=== PATIENT | male | born 1965 | race Caucasian/White ===

== ENCOUNTER 2018-06-17 11:21 | Inpatient (IN) | payer OTHER ==
--- NOTE | 2018-06-17 13:39 | HP ---
CIWA Score - CIWA Score Nausea/Vomitin Muscle Tremors: 3 Anxiety: 3 Agitation: 3 Paroxysmal Sweats: 1-Minimal Palms Moist Orientation: 0-Oriented Tacttile Disturbances: 1-Very Mild Itch/Numbness Auditory Disturbances: 1-Very Mild Visual Disturbances: 0-None Headache: 2-Mild CIWA-Ar Total Score: 17 Admission ROS BHS - HPI Chief Complaint: i need help to stop drinking alcohol,cocaine Allergies/Adverse Reactions: Allergies Allergy/AdvReac Type Severity Reaction Status Date / Time No Known Allergies Allergy Verified 06/17/18 12:05 History of Present Illness: this 52 yars old male with alcohol and cocaine dependence,seeking detox, withdrawal symptom,last detox 02/05/18 to 02/09/18 syncope alcohol related hepatitis c follow up with primary care provider mmtp 90 mgs/day,last medicated 06/16/18 weight loss no significant period of sobriety anxiety,depression,insomnia Exam Limitations: No Limitations - Ebola screening Have you traveled outside of the country in the last 21 days: No Have you had contact with anyone from an Ebola affected area: No Have you been sick,other than usual withdrawal symptoms: No Do you have a fever: No - Review of Systems Constitutional: Chills, Loss of Appetite, Night Sweats, Changes in sleep, Unintentional Wgt. Loss EENT: reports: Nose Congestion Respiratory: reports: No Symptoms reported Cardiac: reports: No Symptoms Reported GI: reports: Diarrhea, Nausea, Vomiting, Abdominal cramping : reports: No Symptoms Reported Musculoskeletal: reports: Back Pain, Muscle Pain Integumentary: reports: Dryness Neuro: reports: Headache, Tremors Endocrine: reports: No Symptoms Reported Hematology: reports: No Symptoms Reported Psychiatric: reports: No Sypmtoms Reported, Judgement Intact, Mood/Affect Appropiate, Anxious, Depressed, other (insomnia) Other Systems: Reviewed and Negative Patient History - Patient Medical History Hx Anemia: No Hx Asthma: No Hx Chronic Obstructive Pulmonary Disease (COPD): No Hx Cancer: No Hx Cardiac Disorders: No Hx Congestive Heart Failure: No Hx Hypertension: No Hx Hypercholesterolemia: No Hx Pacemaker: No Hx Seizures: No Hx Dementia: No Hx Diabetes: No Hx Gastrointestinal Disorders: No Hx Liver Disease: No Hx Genitourinary Disorders: No Hx Sexually Transmitted Disorders: No Hx Renal Disease (ESRD): No Hx Thyroid Disease: No Hx Human Immunodeficiency Virus (HIV): No (last ) Hx Hepatitis C: Yes (not treated o05/02) Hx Depression: Yes (anxiety) Hx Suicide Attempt: No Hx Bipolar Disorder: No Hx Schizophrenia: No Other Medical History: insomnia,no sucidal,no homicidal - Patient Surgical History Past Surgical History: Yes Hx Neurologic Surgery: No Hx Cataract Extraction: No Hx Cardiac Surgery: No Hx Lung Surgery: No Hx Breast Surgery: No Hx Breast Biopsy: No Hx Abdominal Surgery: No Hx Appendectomy: No Hx Cholecystectomy: No Hx Genitourinary Surgery: Yes (? testicular torsion age 16 ) Hx Section: No Hx Orthopedic Surgery: No Anesthesia Reaction: No - PPD History Previous Implant?: Yes Documented Results: Negative w/proof Implanted On Prior [facility] Admission?: Yes Date: 02/07/18 Results: 0 mm PPD to be Administered?: No - Smoking Cessation Smoking history: Current every day smoker Have you smoked in the past 12 months: Yes Aproximately how many cigarettes per day: 20 Hx Chewing Tobacco Use: No Initiated information on smoking cessation: Yes 'Breaking Loose' booklet given: 06/17/18 - Substance & Tx. History Hx Alcohol Use: Yes Hx Substance Use: Yes Substance Use Type: Alcohol, Cocaine, Heroin Hx Substance Use Treatment: Yes ([facility] 02/05/18 to 02/09/18) - Substances Abused Cocaine Route: Injection Frequency: 3-6 times per week Amount used: $100 Age of first use: 16 Date of Last Use: 06/15/18 Heroin Route: Injection Frequency: 1-2 times per week Amount used: 2-3 bags Age of first use: 16 Date of Last Use: 06/15/18 Alcohol-rum/vodka/beer Route: Oral Frequency: Daily Amount used: 3 pts./2-6 pks. Age of first use: 14 Date of Last Use: 06/16/18 Family Disease History - Family Disease History Family Disease History: Other: Father (no contact), Mother (living, healthy), Sister (eight - healthy) Admission Physical Exam BHS - Vital Signs Vital Signs: Vital Signs - 24 hr 06/17/18 11:37 Temperature 98.4 F Pulse Rate 82 Respiratory 20 Rate Blood Pressure 137/91 - Physical General Appearance: Yes: Moderate Distress, Tremorous, Irritable, Sweating, Anxious HEENTM: Yes: Normal ENT Inspection, ANA, Pharynx Normal, Other (loss lower denture) Respiratory: Yes: Lungs Clear, Normal Breath Sounds, No Respiratory Distress Neck: Yes: Within Normal Limits, Supple, Trachea in good position Breast: Yes: Within Normal Limits Cardiology: Yes: Within Normal Limits, Regular Rhythm, Regular Rate, S1, S2 Abdominal: Yes: Within Normal Limits, Normal Bowel Sounds, Non Tender, Flat Genitourinary: Yes: Within Normal Limits Back: Yes: Within Normal Limits Musculoskeletal: Yes: Back pain, Muscle Pain Extremities: Yes: Tremors Neurological: Yes: undercollar maker II-XII NML intact, Fully Oriented, Alert, Motor Strength 5/5 Integumentary: Yes: Dry Lymphatic: Yes: Within Normal Limits - Diagnostic (1) Alcohol dependence with uncomplicated withdrawal Current Visit: No Status: Acute (2) Benzodiazepine abuse, episodic Current Visit: No Status: Acute (3) Cocaine dependence Current Visit: No Status: Acute Qualifiers: Substance use status: uncomplicated Qualified Code(s): F14.20 - Cocaine dependence, uncomplicated (4) Dehydration Current Visit: No Status: Acute (5) Insomnia Current Visit: No Status: Acute (6) Nicotine dependence Current Visit: No Status: Acute Qualifiers: Nicotine product type: cigarettes Substance use status: in withdrawal Qualified Code(s): F17.213 - Nicotine dependence, cigarettes, with withdrawal (7) Methadone maintenance therapy patient Current Visit: No Status: Chronic Cleared for Admission [facility] - Detox or Rehab [facility] Level of Care: Medically Managed Detox Regimen/Protocol: Librium [facility] Breath Alcohol Content Breath Alcohol Content: 0 Urine Drug Screen - Results Drug Screen Negative: No Urine Drug Screen Results: BRUCE-Cocaine, OPI-Opiates, MTD-Methadone
[2018-06-17] MEDS ORDERED: LOPERAMIDE HCL 2 MG CAPSULE PO PRN (13:47)
[2018-06-17] MEDS ORDERED: IBUPROFEN 400 MG TABLET (FP) PO PRN (13:47)
[2018-06-17] MEDS ORDERED: guaiFENesin/D-METHORPHAN HB 10 ML UNIT-DOSE CUPS PO PRN (13:47)
[2018-06-17] MEDS ORDERED: MAGNESIUM CITRATE 300 ML BOTTLE PO PRN (13:47)
[2018-06-17] MEDS ORDERED: P-EPHED 60MG/TRIPROLIDI 2.5MG TABLET PO PRN (13:47)
[2018-06-17] MEDS ORDERED: ACETAMINOPHEN 325 MG TABLET (FP) PO PRN (13:47)
[2018-06-17] MEDS ORDERED: MAGNESIUM HYDROX 2400MG/30ML ORAL SUSPENSION 30 ML CUP PO PRN (13:47)
[2018-06-17] MEDS ORDERED: MENTHOL/PHENOL 1 EACH UD MM PRN (13:47)
[2018-06-17] MEDS ORDERED: MAG HYDROX/AL HYDROX/SIMETH 30 ML UNIT-DOSE CUP PO PRN (13:47)
[2018-06-17] MEDS ORDERED: hydrOXYzine PAMOATE 50 MG CAPSULE (FP) PO PRN (13:47)
[2018-06-17] MEDS ORDERED: METHADONE HCL 10 MG TABLET PO SCH (14:00)
[2018-06-17] MEDS ORDERED: METHADONE HCL 40 MG DISPERSABLE TABLET ONE (15:11)
[2018-06-17] MEDS ORDERED: METHADONE HCL 10 MG TABLET ONE (15:11)
[2018-06-17] MEDS: NICOTINE 21 MG/24 HOURS TOPICAL PATCH TD SCH (15:13)
[2018-06-17] MEDS: METHADONE 80 MG, METHADONE 10 MG PO SCH (15:13)
[2018-06-17] MEDS: chlordiazePOXIDE HCL 25 MG CAPSULE PO PRN (15:20)
[2018-06-17] MEDS: chlordiazePOXIDE HCL 25 MG CAPSULE PO SCH ×2 (17:33→22:10)
[2018-06-17] MEDS ORDERED: MELATONIN 5 MG TABLETS PO PRN (22:00)
[2018-06-17] MEDS: THIAMINE HCL 100 MG TABLET (FP) PO SCH (22:10)
[2018-06-18] MEDS ORDERED: METHADONE HCL 40 MG DISPERSABLE TABLET ONE (04:39)
[2018-06-18] MEDS ORDERED: METHADONE HCL 10 MG TABLET ONE (04:39)
[2018-06-18] MEDS: chlordiazePOXIDE HCL 25 MG CAPSULE PO SCH ×4 (06:36→22:31)
[2018-06-18] MEDS: METHADONE 80 MG, METHADONE 10 MG PO SCH (06:36)
--- NOTE | 2018-06-18 09:04 | EKG ---
Test Reason : Blood Pressure : / mmHG Vent. Rate : 069 BPM Atrial Rate : 069 BPM P-R Int : 186 ms QRS Dur : 086 ms QT Int : 424 ms P-R-T Axes : 082 084 071 degrees QTc Int : 454 ms NORMAL SINUS RHYTHM POSSIBLE LEFT ATRIAL ENLARGEMENT LEFT VENTRICULAR HYPERTROPHY ABNORMAL ECG WHEN COMPARED WITH ECG OF 05-FEB-2018 15:01, NO SIGNIFICANT CHANGE WAS FOUND Confirmed by NADYA GARCIA, MUNA ([id number]) on 06/18/2018 9:03:50 AM Referred By: Confirmed By:MUNA COVINGTON MD
[2018-06-18 10:27] LABS: URINE APPEARANCE TURBID; URINE BILIRUBIN NEGATIVE (<2.0 mg/dL); URINE COLOR YELLOW; URINE GLUCOSE (UA) NEGATIVE (NEGATIVE); URINE KETONE NEGATIVE (NEGATIVE); URINE LEUK ESTERASE NEGATIVE (NEGATIVE); URINE NITRITE NEGATIVE (NEGATIVE); URINE UROBILINOGEN 4.0 E.U/dl mg/dL (0.2-1.0)
[2018-06-18 10:28] LABS: URINE PROTEIN 1+ (NEGATIVE)
[2018-06-18] MEDS: CARBAMIDE PEROXIDE 6.5% OTIC 15 ML BOTTLE AD SCH ×2 (10:29→22:31)
[2018-06-18] MEDS: PRENATAL VITAMINS W/ FOLIC ACID TABLET (FP) PO SCH (10:29)
[2018-06-18] MEDS: NICOTINE 21 MG/24 HOURS TOPICAL PATCH TD SCH (10:30)
[2018-06-18 10:35] LABS: URINE BACTERIA MODERATE /hpf (NONE SEEN); URINE MUCUS FEW
[2018-06-18 10:41] LABS: HEMATOCRIT 43.9 % (35.4-49); HEMOGLOBIN 14.6 GM/dL (11.7-16.9); MCH 28.9 pg (25.7-33.7); MCHC 33.4 g/dl (32.0-35.9); MEAN CELL VOLUME 86.6 fl (80-96); MEAN PLT VOLUME 9.5 fl (7.5-11.1); PLATELET COUNT 133 K/MM3 (134-434); RBC 5.07 M/mm3 (4.00-5.60); RDW 15.5 % (11.9-15.9); WHITE BLOOD COUNT 2.9 K/mm3 (4.0-10.0)
[2018-06-18 10:47] LABS: CHLORIDE 101 mmol/L (98-107); SODIUM 137 mmol/L (136-145)
[2018-06-18 11:15] LABS: ALBUMIN 3.6 g/dl (3.4-5.0); ALK PHOS 96 U/L (45-117); ANION GAP 5 (8-16); BILIRUBIN,TOTAL 0.4 mg/dL (0.2-1.0); BLOOD UREA NITROGEN 16 mg/dL (7-18); CO2 31 mmol/L (21-32); CREATININE 1.1 mg/dL (0.7-1.3); GLUCOSE,RANDOM 120 mg/dL (74-106); SGOT/AST 297 U/L (15-37); SGPT/ALT 157 U/L (12-78); TOT PROT 9.2 g/dl (6.4-8.2)
--- NOTE | 2018-06-18 16:59 | PN ---
[facility] CIWA - CIWA Score Nausea/Vomitin-No Nausea/No Vomiting Muscle Tremors: None Anxiety: 4-Mod. Anxious/Guarded Agitation: 4-Moderately Restless Paroxysmal Sweats: 3 Orientation: 2-Disoriented Date<2 days Tacttile Disturbances: 3-Moderate Itch/Numb/Burn Auditory Disturbances: 0-None Visual Disturbances: 1-Very Mild Sensitivity Headache: 0-None Present CIWA-Ar Total Score: 17 S Progress Note (SOAP) Subjective: Sweating, Interrupted Sleep, Tremors, Poor Appetite. Objective: PATIENT A & O X 2 (UNCERTAIN ABOUT CURRENT DAY / DATE). PATIENT OBSERVED AMBULATING ON UNIT. NO ACUTE DISTRESS. 06/18/18 17:00 Vital Signs Temperature 97.4 F L 06/18/18 14:18 Pulse Rate 66 06/18/18 14:18 Respiratory Rate 18 06/18/18 14:18 Blood Pressure 109/66 06/18/18 14:18 O2 Sat by Pulse Oximetry (%) Laboratory Tests 06/18/18 06/18/18 06/18/18 06:00 06:00 09:00 WBC 2.9 L RBC 5.07 Hgb 14.6 Hct 43.9 D MCV 86.6 MCH 28.9 MCHC 33.4 RDW 15.5 Plt Count 133 L MPV 9.5 Sodium 137 Potassium 4.0 Chloride 101 Carbon Dioxide 31 Anion Gap 5 L BUN 16 Creatinine 1.1 Creat Clearance w eGFR > 60 Random Glucose 120 H Calcium 9.0 Total Bilirubin 0.4 AST 297 H D ALT 157 H D Alkaline Phosphatase 96 Total Protein 9.2 H Albumin 3.6 Urine Color Yellow Urine Appearance Turbid Urine pH 6.0 Ur Specific [place] 1.027 Urine Protein 1+ H Urine Glucose (UA) Negative Urine Ketones Negative Urine Blood 1+ H Urine Nitrite Negative Urine Bilirubin Negative Urine Urobilinogen 4.0 e.u/dl Ur Leukocyte Esterase Negative Urine WBC (Auto) 159 Urine RBC (Auto) 9 Urine Bacteria Moderate Urine Mucus Few LABS NOTED. RPR RESULT PENDING. 06/18/18 17:04 Assessment: 06/18/18 17:01 WITHDRAWAL SYMPTOMS. Plan: CONTINUE DETOX. INCREASE DAILY PO FLUID INTAKE. REPEAT UA FOR ADMISSION ABNORMALITIES. REPEAT AST, ALT ON 06/20/2018 FOR ELEVATED ADMISSION LEVELS.
[2018-06-18] MEDS: chlordiazePOXIDE HCL 25 MG CAPSULE PO PRN (18:33)
--- NOTE | 2018-06-18 19:05 | CONSULT ---
[facility] Psychiatric Consult - Data Date of interview: 06/18/18 Admission source: [facility] Identifying data: Readmission to [facility] for this 52 y/o male seeking detox treatment on for heroin,alcohol and cocaine dependence.Patient is single,a father of one,now domiciled and reportedly employed. Substance Abuse History: Confirmed by the patient in this interview.Smoking history: Current every day smoker. Have you smoked in the past 12 months: Yes. Aproximately how many cigarettes per day: 20. Hx Chewing Tobacco Use: No. Initiated information on smoking cessation: Yes. 'Breaking Loose' booklet given : 06/17/18. - Substance & Tx. History. Hx Alcohol Use: Yes. Hx Substance Use : Yes. Substance Use Type: Alcohol, Cocaine, Heroin. Hx Substance Use Treatment: Yes ([facility] 02/05/18 to 02/09/18). - Substances Abused. Cocaine. Route: Injection. Frequency: 3-6 times per week. Amount used: $100. Age of first use: 16. Date of Last Use: 06/15/18. Heroin. Route: Injection. Frequency: 1-2 times per week. Amount used: 2-3 bags. Age of first use: 16. Date of Last Use: 06/15/18. Alcohol-rum/vodka/beer. Route: Oral. Frequency : Daily. Amount used: 3 pts./2-6 pks. Age of first use: 14. Date of Last Use : 06/16/18 Medical History: Hepatitis C,eczema,right eye extropia and a history of surgery for testiculat torsion (at age 16). Psychiatric History: No reported history of psychiatric hospitalizations.Mr Escamilla states that he sees a psychiatrist in the community for medication management.Diagnosed with anxiety and reportedly prescribed xanax.Patient is currently on methadone maintenance (90 mg/day).Denies history of suicide attempts. Physical/Sexual Abuse/Trauma History: Patient denies. Additional Comment: Urine Drug Screen Results: BRUCE-Cocaine, OPI-Opiates, MTD- Methadone.Noted. Mental Status Exam - Mental Status Exam Alert and Oriented to: Time, Place, Person Cognitive Function: Good Patient Appearance: Well Groomed Mood: Nervous, Anxious, Irritable Affect: Mood Congruent Patient Behavior: Fatigued, Appropriate, Cooperative Speech Pattern: Clear Voice Loudness: Normal Thought Process: Goal Oriented Thought Disorder: Not Present Hallucinations: Denies Suicidal Ideation: Denies Homicidal Ideation: Denies Insight/Judgement: Poor Sleep: Poorly, Difficulty falling asleep Appetite: Good Muscle strength/Tone: Normal Gait/Station: Normal Psychiatric Findings - Problem List ([employer] 1, 2,3) (1) Alcohol dependence with uncomplicated withdrawal Current Visit: Yes Status: Acute (2) Opioid dependence on agonist therapy Current Visit: Yes Status: Acute (3) Cocaine dependence Current Visit: Yes Status: Acute Qualifiers: Substance use status: uncomplicated Qualified Code(s): F14.20 - Cocaine dependence, uncomplicated (4) Nicotine dependence Current Visit: Yes Status: Acute Qualifiers: Nicotine product type: cigarettes Substance use status: in withdrawal Qualified Code(s): F17.213 - Nicotine dependence, cigarettes, with withdrawal (5) Substance induced mood disorder Current Visit: Yes Status: Acute (6) Insomnia Current Visit: Yes Status: Acute Qualifiers: Insomnia type: unspecified Qualified Code(s): G47.00 - Insomnia, unspecified - Initial Treatment Plan Initial Treatment Plan: Psychoeducation.Detoxification.Sleep hygiene.Ambien 10 mg po hs prn.Patient is informed of the risk of parasomnias.Agrees to this careplan.Observation.
[2018-06-18] MEDS: THIAMINE HCL 100 MG TABLET (FP) PO SCH (22:31)
[2018-06-18] MEDS: ZOLPIDEM TARTRATE 10 MG TABLET (PARK CARE ONLY) PO PRN (22:31)
[2018-06-19] MEDS ORDERED: METHADONE HCL 10 MG TABLET ONE (04:39)
[2018-06-19] MEDS ORDERED: METHADONE HCL 40 MG DISPERSABLE TABLET ONE (04:40)
[2018-06-19] MEDS: METHADONE 80 MG, METHADONE 10 MG PO SCH (05:16)
[2018-06-19] MEDS: chlordiazePOXIDE HCL 25 MG CAPSULE PO SCH ×2 (05:16→10:48)
[2018-06-19] MEDS: PRENATAL VITAMINS W/ FOLIC ACID TABLET (FP) PO SCH (10:49)
[2018-06-19] MEDS: CARBAMIDE PEROXIDE 6.5% OTIC 15 ML BOTTLE AD SCH ×2 (10:49→22:25)
[2018-06-19] MEDS: NICOTINE 21 MG/24 HOURS TOPICAL PATCH TD SCH (10:49)
--- NOTE | 2018-06-19 13:49 | PN ---
[facility] CIWA - CIWA Score Nausea/Vomitin-No Nausea/No Vomiting Muscle Tremors: 4-Moderate,w/Arms Extend Anxiety: 4-Mod. Anxious/Guarded Agitation: 4-Moderately Restless Paroxysmal Sweats: 3 Orientation: 0-Oriented Tacttile Disturbances: 0-None Auditory Disturbances: 0-None Visual Disturbances: 0-None Headache: 0-None Present CIWA-Ar Total Score: 15 BHS Progress Note (SOAP) Subjective: Tremor, back pain, chills, constipation x 3 days (stated he will ask nurse for medication if no bm today) Objective: 06/19/18 13:46 Last Vital Signs Temp Pulse Resp BP Pulse Ox 97.8 F 68 16 131/89 06/19/18 10:28 06/19/18 10:28 06/19/18 10:28 06/19/18 10:28 Laboratory Tests 06/18/18 06/18/18 06/18/18 06:00 06:00 09:00 WBC 2.9 L RBC 5.07 Hgb 14.6 Hct 43.9 D MCV 86.6 MCH 28.9 MCHC 33.4 RDW 15.5 Plt Count 133 L MPV 9.5 Sodium 137 Potassium 4.0 Chloride 101 Carbon Dioxide 31 Anion Gap 5 L BUN 16 Creatinine 1.1 Creat Clearance w eGFR > 60 Random Glucose 120 H Calcium 9.0 Total Bilirubin 0.4 AST 297 H D ALT 157 H D Alkaline Phosphatase 96 Total Protein 9.2 H Albumin 3.6 Urine Color Yellow Urine Appearance Turbid Urine pH 6.0 Ur Specific [place] 1.027 Urine Protein 1+ H Urine Glucose (UA) Negative Urine Ketones Negative Urine Blood 1+ H Urine Nitrite Negative Urine Bilirubin Negative Urine Urobilinogen 4.0 e.u/dl Ur Leukocyte Esterase Negative Urine WBC (Auto) 159 Urine RBC (Auto) 9 Urine Bacteria Moderate Urine Mucus Few Labs reviewed: abnormal UA, elevated LFTs (AST, ALT) Assessment: 06/19/18 13:48 Withdrawal symptoms Noted with abnormal UA, elevated LFTs Plan: Continue detox Abnormal UA: encouraged to drink more water for hydration, repeat UA (already ordered) Elevated LFTs most likely due to alcohol dependence, already ordered for repeated AST/ALT
[2018-06-19 14:45] LABS: RPR REACTIVE 1:4 (NONREACTIVE); TREPONEMA ANTIBODY PREVIOUSLY REACTIVE (NONREACTIVE)
[2018-06-19] MEDS: chlordiazePOXIDE 5 MG CAPSULE PO SCH ×2 (17:35→22:24)
[2018-06-19] MEDS: THIAMINE HCL 100 MG TABLET (FP) PO SCH (22:24)
[2018-06-19] MEDS: ZOLPIDEM TARTRATE 10 MG TABLET (PARK CARE ONLY) PO PRN (22:24)
[2018-06-20] MEDS ORDERED: METHADONE HCL 40 MG DISPERSABLE TABLET ONE (04:50)
[2018-06-20] MEDS ORDERED: METHADONE HCL 10 MG TABLET ONE (04:50)
[2018-06-20] MEDS: METHADONE 80 MG, METHADONE 10 MG PO SCH (05:15)
[2018-06-20] MEDS: chlordiazePOXIDE 5 MG CAPSULE PO SCH ×2 (05:15→10:23)
[2018-06-20] MEDS: CARBAMIDE PEROXIDE 6.5% OTIC 15 ML BOTTLE AD SCH ×2 (10:22→23:16)
[2018-06-20] MEDS: NICOTINE 21 MG/24 HOURS TOPICAL PATCH TD SCH (10:22)
[2018-06-20] MEDS: PRENATAL VITAMINS W/ FOLIC ACID TABLET (FP) PO SCH (10:23)
--- NOTE | 2018-06-20 12:04 | PN ---
BHS Progress Note (SOAP) Subjective: ANXIETY,BACK PAIN,FATIGUE. Objective: 06/20/18 12:03 Vital Signs 06/20/18 06/20/18 06/20/18 06:28 06:30 09:14 Temperature 97.9 F 98.3 F Pulse Rate 62 79 Respiratory 18 18 18 Rate Blood Pressure 122/77 120/87 Laboratory Tests 06/18/18 06/18/18 06/18/18 06:00 06:00 06:00 WBC 2.9 L RBC 5.07 Hgb 14.6 Hct 43.9 D MCV 86.6 MCH 28.9 MCHC 33.4 RDW 15.5 Plt Count 133 L MPV 9.5 Sodium 137 Potassium 4.0 Chloride 101 Carbon Dioxide 31 Anion Gap 5 L BUN 16 Creatinine 1.1 Creat Clearance w eGFR > 60 POC Glucometer Random Glucose 120 H Calcium 9.0 Total Bilirubin 0.4 AST 297 H D ALT 157 H D Alkaline Phosphatase 96 Total Protein 9.2 H Albumin 3.6 Urine Color Urine Appearance Urine pH Ur Specific [place] Urine Protein Urine Glucose (UA) Urine Ketones Urine Blood Urine Nitrite Urine Bilirubin Urine Urobilinogen Ur Leukocyte Esterase Urine WBC (Auto) Urine RBC (Auto) Urine Bacteria Urine Mucus RPR Titer Reactive 1:4 H T.pallidum Ab ([facility]) Previously reactive 06/18/18 06/20/18 09:00 05:14 WBC RBC Hgb Hct MCV MCH MCHC RDW Plt Count MPV Sodium Potassium Chloride Carbon Dioxide Anion Gap BUN Creatinine Creat Clearance w eGFR POC Glucometer 128 Random Glucose Calcium Total Bilirubin AST ALT Alkaline Phosphatase Total Protein Albumin Urine Color Yellow Urine Appearance Turbid Urine pH 6.0 Ur Specific [place] 1.027 Urine Protein 1+ H Urine Glucose (UA) Negative Urine Ketones Negative Urine Blood 1+ H Urine Nitrite Negative Urine Bilirubin Negative Urine Urobilinogen 4.0 e.u/dl Ur Leukocyte Esterase Negative Urine WBC (Auto) 159 Urine RBC (Auto) 9 Urine Bacteria Moderate Urine Mucus Few RPR Titer T.pallidum Ab ([facility]) REPEAT UA PENDING. Assessment: 06/20/18 12:03 WITHDRAWAL SX Plan: CONTINUE DETOX
[2018-06-20 14:26] LABS: SGOT/AST 195 U/L (15-37); SGPT/ALT 132 U/L (12-78)
[2018-06-20] MEDS: chlordiazePOXIDE HCL 10 MG CAPSULE PO SCH ×2 (17:56→23:16)
[2018-06-20 20:59] LABS: URINE APPEARANCE CLEAR; URINE BILIRUBIN NEGATIVE (<2.0 mg/dL); URINE COLOR YELLOW; URINE GLUCOSE (UA) NEGATIVE (NEGATIVE); URINE KETONE NEGATIVE (NEGATIVE); URINE LEUK ESTERASE NEGATIVE (NEGATIVE); URINE NITRITE NEGATIVE (NEGATIVE); URINE PROTEIN NEGATIVE (NEGATIVE); URINE UROBILINOGEN NEGATIVE mg/dL (0.2-1.0)
[2018-06-20] MEDS: THIAMINE HCL 100 MG TABLET (FP) PO SCH (23:17)
[2018-06-21] MEDS ORDERED: METHADONE HCL 10 MG TABLET ONE (04:54)
[2018-06-21] MEDS ORDERED: METHADONE HCL 40 MG DISPERSABLE TABLET ONE (04:55)
[2018-06-21] MEDS: METHADONE 80 MG, METHADONE 10 MG PO SCH (06:00)
[2018-06-21] MEDS: chlordiazePOXIDE HCL 10 MG CAPSULE PO SCH (06:01)
[2018-06-21 09:27] VITALS: BP 129/87; PULSE 70; TEMP 97
[2018-06-21] MEDS: PRENATAL VITAMINS W/ FOLIC ACID TABLET (FP) PO SCH (10:20)
[2018-06-21] MEDS: NICOTINE 21 MG/24 HOURS TOPICAL PATCH TD SCH (10:20)
[2018-06-21] MEDS: CARBAMIDE PEROXIDE 6.5% OTIC 15 ML BOTTLE AD SCH (10:41)
--- NOTE | 2018-06-21 11:40 | PN ---
S Progress Note (SOAP) Subjective: DETOX COMPLETED. ALERT O X 3. NAD. PT REPORTS HE HAS NO PMD BUT USES [facility] WHEN NEEDED FOR MEDICAL CARE. Objective: 06/21/18 11:39 Vital Signs 06/21/18 06/21/18 06/21/18 06:21 06:30 09:26 Temperature 97.7 F 97 F L Pulse Rate 62 70 Respiratory 18 18 18 Rate Blood Pressure 119/72 129/87 Laboratory Tests 06/18/18 06/18/18 06/18/18 06:00 06:00 06:00 WBC 2.9 L RBC 5.07 Hgb 14.6 Hct 43.9 D MCV 86.6 MCH 28.9 MCHC 33.4 RDW 15.5 Plt Count 133 L MPV 9.5 Sodium 137 Potassium 4.0 Chloride 101 Carbon Dioxide 31 Anion Gap 5 L BUN 16 Creatinine 1.1 Creat Clearance w eGFR > 60 POC Glucometer Random Glucose 120 H Calcium 9.0 Total Bilirubin 0.4 AST 297 H D ALT 157 H D Alkaline Phosphatase 96 Total Protein 9.2 H Albumin 3.6 Urine Color Urine Appearance Urine pH Ur Specific [place] Urine Protein Urine Glucose (UA) Urine Ketones Urine Blood Urine Nitrite Urine Bilirubin Urine Urobilinogen Ur Leukocyte Esterase Urine WBC (Auto) Urine RBC (Auto) Urine Bacteria Urine Mucus RPR Titer Reactive 1:4 H T.pallidum Ab ([facility]) Previously reactive 06/18/18 06/20/18 06/20/18 09:00 05:14 08:30 WBC RBC Hgb Hct MCV MCH MCHC RDW Plt Count MPV Sodium Potassium Chloride Carbon Dioxide Anion Gap BUN Creatinine Creat Clearance w eGFR POC Glucometer 128 Random Glucose Calcium Total Bilirubin AST 195 H D ALT 132 H Alkaline Phosphatase Total Protein Albumin Urine Color Yellow Urine Appearance Turbid Urine pH 6.0 Ur Specific [place] 1.027 Urine Protein 1+ H Urine Glucose (UA) Negative Urine Ketones Negative Urine Blood 1+ H Urine Nitrite Negative Urine Bilirubin Negative Urine Urobilinogen 4.0 e.u/dl Ur Leukocyte Esterase Negative Urine WBC (Auto) 159 Urine RBC (Auto) 9 Urine Bacteria Moderate Urine Mucus Few RPR Titer T.pallidum Ab ([facility]) 06/20/18 15:30 WBC RBC Hgb Hct MCV MCH MCHC RDW Plt Count MPV Sodium Potassium Chloride Carbon Dioxide Anion Gap BUN Creatinine Creat Clearance w eGFR POC Glucometer Random Glucose Calcium Total Bilirubin AST ALT Alkaline Phosphatase Total Protein Albumin Urine Color Yellow Urine Appearance Clear Urine pH 6.0 Ur Specific [place] 1.014 Urine Protein Negative Urine Glucose (UA) Negative Urine Ketones Negative Urine Blood Negative Urine Nitrite Negative Urine Bilirubin Negative Urine Urobilinogen Negative Ur Leukocyte Esterase Negative Urine WBC (Auto) Urine RBC (Auto) Urine Bacteria Urine Mucus RPR Titer T.pallidum ([facility]) Assessment: 06/21/18 11:39 MEDICALLY STABLE Plan: D/C PT TODAY
--- NOTE | 2018-06-21 11:41 | DS ---
[facility] Detox Discharge Summary Admission Date: 06/17/18 Discharge Date: 06/21/18 - History Present History: Alcohol Dependence, Cocaine Dependence, MMTP Additional Comments: DETOX COMPLETED. ALERT O X 3. NAD. Pertinent Past History: PLEASE SEE DX BELOW - Physical Exam Results Vital Signs: Vital Signs Temperature 97 F L 06/21/18 09:26 Pulse Rate 70 06/21/18 09:26 Respiratory Rate 18 06/21/18 09:26 Blood Pressure 129/87 06/21/18 09:26 O2 Sat by Pulse Oximetry (%) Pertinent Admission Physical Exam Findings: WITHDRAWAL SX Laboratory Tests 06/18/18 06/18/18 06/18/18 06:00 06:00 06:00 WBC 2.9 L RBC 5.07 Hgb 14.6 Hct 43.9 D MCV 86.6 MCH 28.9 MCHC 33.4 RDW 15.5 Plt Count 133 L MPV 9.5 Sodium 137 Potassium 4.0 Chloride 101 Carbon Dioxide 31 Anion Gap 5 L BUN 16 Creatinine 1.1 Creat Clearance w eGFR > 60 POC Glucometer Random Glucose 120 H Calcium 9.0 Total Bilirubin 0.4 AST 297 H D ALT 157 H D Alkaline Phosphatase 96 Total Protein 9.2 H Albumin 3.6 Urine Color Urine Appearance Urine pH Ur Specific [place] Urine Protein Urine Glucose (UA) Urine Ketones Urine Blood Urine Nitrite Urine Bilirubin Urine Urobilinogen Ur Leukocyte Esterase Urine WBC (Auto) Urine RBC (Auto) Urine Bacteria Urine Mucus RPR Titer Reactive 1:4 H T.pallidum Ab ([facility]) Previously reactive 06/18/18 06/20/18 06/20/18 09:00 05:14 08:30 WBC RBC Hgb Hct MCV MCH MCHC RDW Plt Count MPV Sodium Potassium Chloride Carbon Dioxide Anion Gap BUN Creatinine Creat Clearance w eGFR POC Glucometer 128 Random Glucose Calcium Total Bilirubin AST 195 H D ALT 132 H Alkaline Phosphatase Total Protein Albumin Urine Color Yellow Urine Appearance Turbid Urine pH 6.0 Ur Specific [place] 1.027 Urine Protein 1+ H Urine Glucose (UA) Negative Urine Ketones Negative Urine Blood 1+ H Urine Nitrite Negative Urine Bilirubin Negative Urine Urobilinogen 4.0 e.u/dl Ur Leukocyte Esterase Negative Urine WBC (Auto) 159 Urine RBC (Auto) 9 Urine Bacteria Moderate Urine Mucus Few RPR Titer T.pallidum Ab ([facility]) 06/20/18 15:30 WBC RBC Hgb Hct MCV MCH MCHC RDW Plt Count MPV Sodium Potassium Chloride Carbon Dioxide Anion Gap BUN Creatinine Creat Clearance w eGFR POC Glucometer Random Glucose Calcium Total Bilirubin AST ALT Alkaline Phosphatase Total Protein Albumin Urine Color Yellow Urine Appearance Clear Urine pH 6.0 Ur Specific [place] 1.014 Urine Protein Negative Urine Glucose (UA) Negative Urine Ketones Negative Urine Blood Negative Urine Nitrite Negative Urine Bilirubin Negative Urine Urobilinogen Negative Ur Leukocyte Esterase Negative Urine WBC (Auto) Urine RBC (Auto) Urine Bacteria Urine Mucus RPR Titer T.pallidum Ab ([facility]) - Treatment Hospital Course: Detox Protocol Followed, Detoxed Safely, Responded well, Discharged Condition Good - Medication Discharge Medications: Ambulatory Orders NK [No Known Home Medication] 06/17/18 - Diagnosis (1) Alcohol dependence with uncomplicated withdrawal Current Visit: Yes Status: Acute (2) Dehydration Current Visit: Yes Status: Acute (3) Methadone maintenance therapy patient Current Visit: Yes Status: Chronic (4) Benzodiazepine abuse, episodic Current Visit: Yes Status: Acute (5) Cocaine dependence Current Visit: Yes Status: Acute Qualifiers: Substance use status: uncomplicated Qualified Code(s): F14.20 - Cocaine dependence, uncomplicated (6) Hepatitis C Current Visit: Yes Status: Chronic Qualifiers: Viral hepatitis chronicity: chronic Hepatic coma status: without hepatic coma Qualified Code(s): B18.2 - Chronic viral hepatitis C - AMA Did Patient Leave Against Medical Advice: No
== END 2018-06-21 12:27 | disposition home or self-care (01) | DRG 773 ==
LOC: YASAS 11:21 → Y3N 13:52
PROVIDERS: ADMIT Surgery; ATTEND Surgery
PROC: HZ2ZZZZ Detoxification Services for Substance Abuse Treatment (ICD-10-PCS; principal; 2018-06-17)
DX: F10.230 Alcohol dependence with withdrawal, uncomplicated (principal); F11.20 Opioid dependence, uncomplicated; F14.20 Cocaine dependence, uncomplicated; F13.10 Sedative, hypnotic or anxiolytic abuse, uncomplicated; F17.213 Nicotine dependence, cigarettes, with withdrawal; F19.24 Other psychoactive substance dependence with psychoactive substance-induced mood disorder; E86.0 Dehydration; B18.2 Chronic viral hepatitis C; R82.90 Unspecified abnormal findings in urine; R94.5 Abnormal results of liver function studies; G47.00 Insomnia, unspecified
CPT/HCPCS: 36415; 80053; 81003; 81015; 82962; 84450; 84460; 85027; 86593; 86780; 93005; 93010

== ENCOUNTER 2018-10-18 12:33 | Inpatient (IN) | payer OTHER ==
[2018-10-18 13:36] VITALS: BMI 22.1
--- NOTE | 2018-10-18 15:44 | HP ---
CIWA Score - Admission Criteria [facility]ASAS Guidelines: Admission for Medically Managed Detox: Requires at least one of the followin. CIWA greater than 12 2. Seizures within the past 24 hours 3. Delirium tremens within the past 24 hours 4. Hallucinations within the past 24 hours 5. Acute intervention needed for co occurring medical disorder 6. Acute intervention needed for co occurring psychiatric disorder 7. Severe withdrawal that cannot be handled at a lower level of care (continued vomiting, continued diarrhea, abnormal vital signs) requiring intravenous medication and/or fluids 8. Admission ROS BHS - HPI Chief Complaint: I need rehab for further treatment. Allergies/Adverse Reactions: Allergies Allergy/AdvReac Type Severity Reaction Status Date / Time No Known Allergies Allergy Verified 10/18/18 15:15 History of Present Illness: pt is a 52yr old male with a history of alcohol dependence seeking rehab after detox treatment at [facility] for the past 5 days and is here for rehab treatment. pt is on a MMTP program last dose received yesterday at [facility] ; pending verification. Exam Limitations: No Limitations - Ebola screening Have you traveled outside of the country in the last 21 days: No Have you had contact with anyone from an Ebola affected area: No Have you been sick,other than usual withdrawal symptoms: No Do you have a fever: No - Review of Systems Constitutional: Chills, Loss of Appetite EENT: reports: Tearing (allergies) Respiratory: reports: No Symptoms reported Cardiac: reports: No Symptoms Reported GI: reports: Poor Fluid Intake : reports: No Symptoms Reported Musculoskeletal: reports: No Symptoms Reported Integumentary: reports: No Symptoms Reported Neuro: reports: Headache Endocrine: reports: Flushing Hematology: reports: No Symptoms Reported Psychiatric: reports: Judgement Intact, Orientated x3, Agitated, Anxious Other Systems: Reviewed and Negative Patient History - Patient Medical History Hx Anemia: No Hx Asthma: No Hx Chronic Obstructive Pulmonary Disease (COPD): No Hx Cancer: No Hx Cardiac Disorders: No Hx Congestive Heart Failure: No Hx Hypertension: No Hx Hypercholesterolemia: No Hx Pacemaker: No Hx Seizures: No Hx Dementia: No Hx Diabetes: No Hx Gastrointestinal Disorders: No Hx Liver Disease: No Hx Genitourinary Disorders: No Hx Sexually Transmitted Disorders: No Hx Renal Disease (ESRD): No Hx Thyroid Disease: No Hx Human Immunodeficiency Virus (HIV): Yes (since 1989) Hx Hepatitis C: Yes (not treated o05/02) Hx Depression: No Hx Suicide Attempt: No Hx Bipolar Disorder: No Hx Schizophrenia: No - Patient Surgical History Past Surgical History: Yes Hx Neurologic Surgery: No Hx Cataract Extraction: No Hx Cardiac Surgery: No Hx Lung Surgery: No Hx Breast Surgery: No Hx Breast Biopsy: No Hx Abdominal Surgery: No Hx Appendectomy: No Hx Cholecystectomy: No Hx Genitourinary Surgery: Yes (testicular torsion age 16) Hx Section: No Hx Orthopedic Surgery: No Anesthesia Reaction: No - PPD History Previous Implant?: Yes Documented Results: Negative w/proof Implanted On Prior R Admission?: Yes Date: 02/07/18 Results: 0 mm PPD to be Administered?: No - Reproductive History Patient is a Female of Child Bearing Age (11 -55 yrs old): No - Smoking Cessation Smoking history: Current every day smoker Have you smoked in the past 12 months: Yes Aproximately how many cigarettes per day: 10 Hx Chewing Tobacco Use: No Initiated information on smoking cessation: Yes 'Breaking Loose' booklet given: 10/18/18 - Substance & Tx. History Hx Alcohol Use: Yes Substance Use Type: Alcohol Hx Substance Use Treatment: Yes ([facility] treatment for detox 10/2018) - Substances Abused Alcohol-vodka/beer Route: Oral Frequency: Daily Amount used: 3 pts./7-8 (12 oz.) Age of first use: 16 Date of Last Use: 10/18/18 Family Disease History - Family Disease History Family Disease History: Other: Father (no contact), Mother (living, healthy), Sister (eight - healthy) Admission Physical Exam BHS - Vital Signs Vital Signs: Vital Signs - 24 hr 10/18/18 13:34 Temperature 97.7 F Pulse Rate 88 Respiratory 18 Rate Blood Pressure 134/86 - Physical General Appearance: Yes: Appropriately Dressed, Moderate Distress, Thin, Tremorous, Irritable, Sweating, Anxious HEENTM: Yes: Hearing grossly Normal, Normal Voice, Nasal Congestion, Rhinorrhea , Muffled/Hoarse Voice, Other (red throat noted) Respiratory: Yes: Lungs Clear, Normal Breath Sounds, No Respiratory Distress Neck: Yes: No masses,lesions,Nodules Breast: Yes: Within Normal Limits Cardiology: Yes: Regular Rhythm, Regular Rate, S1, S2 Abdominal: Yes: Normal Bowel Sounds, Non Tender Genitourinary: Yes: Within Normal Limits Back: Yes: Normal Inspection Musculoskeletal: Yes: Other (painful corns to toes and ball of left foot.) Extremities: Yes: Normal Capillary Refill, Normal Inspection, Non-Tender, Tremors Neurological: Yes: Fully Oriented, Alert, Normal Response Integumentary: Yes: Normal Color Lymphatic: Yes: Within Normal Limits - Diagnostic (1) Alcohol dependence in remission Current Visit: Yes Status: Chronic (2) Anxiety Current Visit: Yes Status: Acute (3) Substance-induced sleep disorder Current Visit: Yes Status: Acute (4) Cocaine dependence Current Visit: Yes Status: Chronic Qualifiers: Substance use status: uncomplicated (5) Exotropia of right eye Current Visit: Yes Status: Chronic (6) Hepatitis C Current Visit: Yes Status: Chronic Qualifiers: Viral hepatitis chronicity: chronic Hepatic coma status: without hepatic coma Qualified Code(s): B18.2 - Chronic viral hepatitis C (7) History of HIV infection Current Visit: Yes Status: Chronic (8) Methadone maintenance therapy patient Current Visit: Yes Status: Chronic (9) Nicotine dependence Current Visit: Yes Status: Chronic Qualifiers: Nicotine product type: cigarettes Substance use status: uncomplicated Qualified Code(s): F17.210 - Nicotine dependence, cigarettes, uncomplicated (10) Substance induced mood disorder Current Visit: No Status: Chronic Cleared for Admission [facility] - Detox or Rehab [facility] Level of Care: Medically Managed Claeared for Rehab Admission: Yes [facility] Breath Alcohol Content Breath Alcohol Content: 0.028 Urine Drug Screen - Results Drug Screen Negative: No Urine Drug Screen Results: THC-Marijuana, BZO-Benzodiazepines, MTD-Methadone Inpatient Rehab Admission - Initial Determination Are CD services needed?: Yes Free of communicable disease: Yes Not in need of hospitalization: Yes - Rehab Admission Criteria Previous failed treatment: Yes Poor recovery environment: Yes Comorbidities: Yes Lacks judgement: Yes
[2018-10-18] MEDS ORDERED: guaiFENesin/D-METHORPHAN HB 10 ML UNIT-DOSE CUPS PO PRN (15:51)
[2018-10-18] MEDS ORDERED: ACETAMINOPHEN 325 MG TABLET (FP) PO PRN (15:51)
[2018-10-18] MEDS ORDERED: LOPERAMIDE HCL 2 MG CAPSULE PO PRN (15:51)
[2018-10-18] MEDS ORDERED: MAGNESIUM HYDROX 2400MG/30ML ORAL SUSPENSION 30 ML CUP PO PRN (15:51)
[2018-10-18] MEDS ORDERED: MAG HYDROX/AL HYDROX/SIMETH 30 ML UNIT-DOSE CUP PO PRN (15:51)
[2018-10-18] MEDS ORDERED: MAGNESIUM CITRATE 300 ML BOTTLE PO PRN (15:51)
[2018-10-18] MEDS ORDERED: P-EPHED 60MG/TRIPROLIDI 2.5MG TABLET PO PRN (15:51)
[2018-10-18] MEDS ORDERED: MENTHOL/PHENOL 1 EACH UD MM PRN (15:51)
[2018-10-18] MEDS ORDERED: NICOTINE POLACRILEX 4 MG GUM BC PRN (15:51)
--- NOTE | 2018-10-18 17:11 | HP ---
Psychiatrist Admission - Data Date of interview: 10/18/18 Admission source: [facility] Identifying data: Patient is a 53 year old male, without children, unemployed, domiciled, and is supported by public assistance. This is one of multiple admissions to rehab. Patient admitted to for alcohol, marijuana, and benzodiazepine dependence. Medical History: HIV, testicular torsion age 16, Hep C Psychiatric History: Patient denies h/o psychiatric hospitalization and suicide attempt. He reports seeing a psychiatrist seven years ago in [facility] secondary to anxiety and stress. He was prescribed xaxnac, seroquel, and another agent. Patient denies current OPD. He was recently in detox at [facility] (last week) and was prescribed seroquel insomnia for insomnia. At present he reports difficulty sleeping. Physical/Sexual Abuse/Trauma History: denies. Vital Signs: Vital Signs - 24 hr 10/18/18 13:34 Temperature 97.7 F Pulse Rate 88 Respiratory 18 Rate Blood Pressure 134/86 Allergies/Adverse Reactions: Allergies Allergy/AdvReac Type Severity Reaction Status Date / Time No Known Allergies Allergy Verified 10/18/18 15:15 Concur with the findings of this exam: Yes - Substance Abuse/Tx History Hx Alcohol Use: Yes (3 pints daily) Hx Substance Use: Yes (Xanac - varies ) Substance Use Type: Tranquilizers Hx Substance Use Treatment: Yes ([facility]. ) Mental Status Exam - Mental Status Exam Alert and Oriented to: Time, Place, Person Cognitive Function: Good Patient Appearance: Well Groomed Mood: Euthymic Affect: Appropriate, Mood Congruent Patient Behavior: Appropriate, Cooperative Speech Pattern: Clear, Appropriate Voice Loudness: Normal Thought Process: Intact, Goal Oriented Thought Disorder: Not Present Hallucinations: Denies Suicidal Ideation: Denies Homicidal Ideation: Denies Insight/Judgement: Poor Sleep: Poorly Appetite: Fair Muscle strength/Tone: Normal Gait/Station: Normal Psychiatric Findings - Problem List ([place] 1, 2,3) (1) Alcohol dependence Current Visit: Yes Status: Acute (2) Methadone maintenance therapy patient Current Visit: Yes Status: Chronic (3) Substance-induced sleep disorder Current Visit: Yes Status: Acute (4) Nicotine dependence Current Visit: Yes Status: Chronic Qualifiers: Nicotine product type: cigarettes Substance use status: uncomplicated Qualified Code(s): F17.210 - Nicotine dependence, cigarettes, uncomplicated - Initial Treatment Plan Initial Treatment Plan: Psychoeducation provided. Detoxification in progress. Will order Seroquel 50mg qhs. Benefits and side effects discussed. Verbal consent given.
[2018-10-18] MEDS: NAPHAZOLINE/PHENIRAMINE OPHTHALMIC 15 ML BOTTLE OU PRN (18:00)
[2018-10-18] MEDS ORDERED: MELATONIN 5 MG TABLETS PO PRN (22:00)
[2018-10-18] MEDS ORDERED: traZODone HCL 50 MG TABLET (FP) PO SCH (22:00)
[2018-10-18] MEDS: QUEtiapine FUMARATE 50 MG TABLET PO SCH (22:04)
[2018-10-18] MEDS: THIAMINE HCL 100 MG TABLET (FP) PO SCH (22:04)
[2018-10-18] MEDS: RANITIDINE HCL 150 MG TABLET (FP) PO SCH (22:04)
[2018-10-18] MEDS: TOLNAFTATE 1% CREAM 15 GM TUBE TP SCH (22:05)
[2018-10-19] MEDS ORDERED: METHADONE HCL 10 MG TABLET PO SCH (07:30)
[2018-10-19] MEDS ORDERED: METHADONE HCL 40 MG DISPERSABLE TABLET ONE (09:59)
[2018-10-19] MEDS ORDERED: METHADONE HCL 10 MG TABLET ONE (09:59)
[2018-10-19] MEDS: METHADONE 80 MG, METHADONE 20 MG PO SCH (11:26)
[2018-10-19] MEDS: NICOTINE 21 MG/24 HOURS TOPICAL PATCH TD SCH (11:27)
[2018-10-19] MEDS: RANITIDINE HCL 150 MG TABLET (FP) PO SCH ×2 (11:27→21:44)
[2018-10-19] MEDS: PRENATAL VITAMINS W/ FOLIC ACID TABLET (FP) PO SCH (11:27)
[2018-10-19] MEDS: TOLNAFTATE 1% CREAM 15 GM TUBE TP SCH ×2 (11:28→21:44)
[2018-10-19] MEDS: NAPHAZOLINE/PHENIRAMINE OPHTHALMIC 15 ML BOTTLE OU PRN (11:28)
--- NOTE | 2018-10-19 12:28 | EKG ---
Test Reason : Blood Pressure : / mmHG Vent. Rate : 077 BPM Atrial Rate : 077 BPM P-R Int : 172 ms QRS Dur : 082 ms QT Int : 406 ms P-R-T Axes : 075 081 066 degrees QTc Int : 459 ms NORMAL SINUS RHYTHM NORMAL ECG WHEN COMPARED WITH ECG OF 28-JUN-2018 21:26, NO SIGNIFICANT CHANGE WAS FOUND Confirmed by MUNA COVINGTON MD ([id number]) on 10/19/2018 12:27:46 PM Referred By: Confirmed By:MUNA COVINGTON MD
[2018-10-19] MEDS: QUEtiapine FUMARATE 50 MG TABLET PO SCH (21:44)
[2018-10-19] MEDS: THIAMINE HCL 100 MG TABLET (FP) PO SCH (21:44)
[2018-10-20] MEDS ORDERED: METHADONE HCL 40 MG DISPERSABLE TABLET ONE (04:55)
[2018-10-20] MEDS ORDERED: METHADONE HCL 10 MG TABLET ONE (04:55)
[2018-10-20] MEDS: METHADONE 80 MG, METHADONE 20 MG PO SCH (06:46)
[2018-10-20] MEDS: NICOTINE 21 MG/24 HOURS TOPICAL PATCH TD SCH (10:23)
[2018-10-20] MEDS: TOLNAFTATE 1% CREAM 15 GM TUBE TP SCH ×2 (10:24→21:37)
[2018-10-20] MEDS: RANITIDINE HCL 150 MG TABLET (FP) PO SCH ×2 (10:24→21:36)
[2018-10-20] MEDS: PRENATAL VITAMINS W/ FOLIC ACID TABLET (FP) PO SCH (10:24)
[2018-10-20] MEDS: THIAMINE HCL 100 MG TABLET (FP) PO SCH (21:36)
[2018-10-20] MEDS: QUEtiapine FUMARATE 50 MG TABLET PO SCH (21:36)
[2018-10-21] MEDS ORDERED: METHADONE HCL 40 MG DISPERSABLE TABLET ONE (05:44)
[2018-10-21] MEDS ORDERED: METHADONE HCL 10 MG TABLET ONE (05:44)
[2018-10-21] MEDS: METHADONE 80 MG, METHADONE 20 MG PO SCH (06:35)
[2018-10-21] MEDS: NICOTINE 21 MG/24 HOURS TOPICAL PATCH TD SCH (10:46)
[2018-10-21] MEDS: RANITIDINE HCL 150 MG TABLET (FP) PO SCH ×2 (10:46→22:13)
[2018-10-21] MEDS: PRENATAL VITAMINS W/ FOLIC ACID TABLET (FP) PO SCH (10:46)
[2018-10-21] MEDS: NAPHAZOLINE/PHENIRAMINE OPHTHALMIC 15 ML BOTTLE OU PRN ×2 (10:47→22:00)
[2018-10-21] MEDS: TOLNAFTATE 1% CREAM 15 GM TUBE TP SCH ×2 (10:47→22:12)
--- NOTE | 2018-10-21 12:29 | PN ---
BHS Progress Note (SOAP) Subjective: Pt c/o hemorrhoids- blood in the stool- strains when he has a BM. Has one episode yesterday. Nothing today. Pt to requesting Citroma to help with constipation. f/u prn
--- NOTE | 2018-10-21 15:48 | PN ---
Psychiatric Progress Note Vital Signs: Vital Signs Period Temp Pulse Resp BP Sys/Freire Pulse Ox Last 24 Hr 98.5 F 81 18-18 140/93 Date of Session: 10/21/18 Chief Complaint:: " I need something for my anxiety ". HPI: Referred to mining consultant psychiatrist to address complaint of anxiety. Hospital course is otherwise unremarkable. ROS: Visible on the unit, well groomed, ambulatory. Alert and fully oriented. Current Medications: Active Medications Generic Name Dose Route Start Last Admin Trade Name Freq PRN Reason Stop Dose Admin Acetaminophen 650 mg 10/18/18 15:51 Tylenol - PO Q4H PRN FEVER Al Hydroxide/Mg Hydroxide 30 ml 10/18/18 15:51 Mylanta Oral Suspension - PO Q6H PRN DYSPEPSIA Eucalyptus/Menthol/Phenol/Sorbitol 1 each 10/18/18 15:51 Cepastat Lozenge - MM Q4H PRN SORE THROAT Guaifenesin 10 ml 10/18/18 15:51 Robitussin Dm - PO Q6H PRN COUGH Hydroxyzine Pamoate 50 mg 10/18/18 15:51 Vistaril - PO Q4H PRN AGITATION Ibuprofen 400 mg 10/18/18 15:51 Motrin - PO Q6H PRN Pain level 4-6 Loperamide HCl 4 mg 10/18/18 15:51 Imodium - PO Q6H PRN DIARRHEA Magnesium Citrate 300 ml 10/18/18 15:51 Citroma - PO Q48H PRN CONSTIPATION Magnesium Hydroxide 30 ml 10/18/18 15:51 Milk Of Magnesia - PO DAILY PRN CONSTIPATION Melatonin 5 mg 10/18/18 22:00 Melatonin PO HS PRN INSOMNIA Methadone HCl 80 mg/ Methadone 100 mg 10/19/18 08:20 10/21/18 06:35 HCl 20 mg PO 10/26/18 08:19 100 mg DAILY@0600 DEMIAN Administration Naphazoline HCl/Pheniramine Maleate 2 drop 10/18/18 15:53 10/21/18 10:47 Visine-A - OU 2 drop QID PRN Administration DRY EYES Nicotine 21 mg 10/19/18 10:00 10/21/18 10:46 Nicoderm Patch - TD 21 mg DAILY DEMIAN Administration Nicotine Polacrilex 4 mg 10/18/18 15:51 Nicorette Gum - BC Q2H PRN NICOTINE REPLACEMENT RX Multivit/Folic Acid/Iron 1 tab 10/19/18 10:00 10/21/18 10:46 Vitamins (Sjr) - PO 1 tab DAILY DEMIAN Administration Pseudoephedrine/Triprolidine 1 combo 10/18/18 15:51 Actifed - PO TID PRN NASAL CONGESTION Quetiapine Fumarate 50 mg 10/18/18 22:00 10/20/18 21:36 Seroquel - PO 50 mg HS DEMIAN Administration Ranitidine HCl 150 mg 10/18/18 22:00 10/21/18 10:46 Zantac - PO 150 mg BID DEMIAN Administration Thiamine HCl 100 mg 10/18/18 22:00 10/20/18 21:36 Vitamin B1 - PO 100 mg HS DEMIAN Administration Tolnaftate 1 applic 10/18/18 22:00 10/21/18 10:47 Tinactin 1% Cream - TP 1 applic BID DEMIAN Administration Medication(s) Change(s): None. Patient is reassured and given education about his medications. Advised to utilize his prn doses of hydroxyzine as prescribed. Side effects/benefits discussed with the patient. Mr Escamilla agrees to this careplan. Current Side Effect: No Lab tests ordered: No Lab tests reviewed: Yes Provider note:: Chart reviewed. ticket broker Louie's admission note : read and appreciated. Met with the patient. Doing well on examination. Patient admits to episodic episodes of anxiety (moderate) and he is inquiring about " medications that would help me stay calm ". Informed of benefits of breathing exercises, meditation, socialization in addition to medications (non- benzodiazepines). Hydroxyzine prn discussed. Mr Escamilla agrees to a trial of vistaril 50 mg po q 4 hours prn. Will follow response. Mental status remains stable. Total face to face time:: 25 Mental Status Exam - Mental Status Exam Alert and Oriented to: Time, Place, Person Cognitive Function: Good Patient Appearance: Well Groomed Mood: Nervous, Anxious Affect: Mood Congruent Patient Behavior: Cooperative Speech Pattern: Clear, Appropriate Voice Loudness: Normal Thought Process: Intact, Goal Oriented Thought Disorder: Not Present Hallucinations: Denies Suicidal Ideation: Denies Homicidal Ideation: Denies Insight/Judgement: Fair Sleep: Well Appetite: Good Muscle strength/Tone: Normal Gait/Station: Normal Psychiatric Treatment Plan - Problem List (1) Alcohol dependence Current Visit: Yes Comment: . (2) Methadone maintenance therapy patient Current Visit: Yes Comment: . (3) Nicotine dependence Current Visit: Yes Qualifiers: Nicotine product type: cigarettes Substance use status: uncomplicated Qualified Code(s): F17.210 - Nicotine dependence, cigarettes, uncomplicated Comment: . (4) Substance induced mood disorder Current Visit: Yes Comment: .
[2018-10-21] MEDS: hydrOXYzine PAMOATE 50 MG CAPSULE (FP) PO PRN ×2 (17:51→22:00)
[2018-10-21] MEDS: THIAMINE HCL 100 MG TABLET (FP) PO SCH (21:59)
[2018-10-21] MEDS: QUEtiapine FUMARATE 50 MG TABLET PO SCH (22:12)
[2018-10-22] MEDS ORDERED: METHADONE HCL 10 MG TABLET ONE (04:18)
[2018-10-22] MEDS ORDERED: METHADONE HCL 40 MG DISPERSABLE TABLET ONE (04:19)
[2018-10-22] MEDS: METHADONE 80 MG, METHADONE 20 MG PO SCH (06:30)
[2018-10-22] MEDS: hydrOXYzine PAMOATE 50 MG CAPSULE (FP) PO PRN ×3 (06:37→22:24)
[2018-10-22] MEDS: NICOTINE 21 MG/24 HOURS TOPICAL PATCH TD SCH (10:34)
[2018-10-22] MEDS: RANITIDINE HCL 150 MG TABLET (FP) PO SCH ×2 (10:35→22:22)
[2018-10-22] MEDS: PRENATAL VITAMINS W/ FOLIC ACID TABLET (FP) PO SCH (10:35)
[2018-10-22] MEDS: TOLNAFTATE 1% CREAM 15 GM TUBE TP SCH ×2 (10:36→22:23)
[2018-10-22 11:00] LABS: BASO % 0.5 % (0-2.0); EOS % 0.3 % (0-4.5); HEMATOCRIT 40.6 % (35.4-49); HEMOGLOBIN 12.8 GM/dL (11.7-16.9); LYMPH % 23.7 % (8-40); MCH 28.2 pg (25.7-33.7); MCHC 31.5 g/dl (32.0-35.9); MEAN CELL VOLUME 89.5 fl (80-96); MEAN PLT VOLUME 9.9 fl (7.5-11.1); NEUT % 61.5 % (42.8-82.8); PLATELET COUNT 73 K/MM3 (134-434); RBC 4.54 M/mm3 (4.00-5.60); RDW 13.3 % (11.9-15.9); WHITE BLOOD COUNT 4.1 K/mm3 (4.0-10.0)
[2018-10-22 11:42] LABS: ALK PHOS 167 U/L (45-117); ANION GAP 8 MMOL/L (8-16); BILIRUBIN,TOTAL 0.8 mg/dL (0.2-1); BLOOD UREA NITROGEN 13 mg/dL (7-18); CALCIUM 8.5 mg/dL (8.5-10.1); CHLORIDE 97 mmol/L (98-107); CO2 29 mmol/L (21-32); CREATININE 0.8 mg/dL (0.55-1.3); GLUCOSE,RANDOM 106 mg/dL (74-106); POTASSIUM 4.4 mmol/L (3.5-5.1); SGOT/AST 191 U/L (15-37); SGPT/ALT 123 U/L (13-61); SODIUM 134 mmol/L (136-145); TOT PROT 9.2 g/dl (6.4-8.2)
[2018-10-22] MEDS: THIAMINE HCL 100 MG TABLET (FP) PO SCH (22:22)
[2018-10-22] MEDS: QUEtiapine FUMARATE 50 MG TABLET PO SCH (22:22)
[2018-10-22] MEDS: IBUPROFEN 400 MG TABLET (FP) PO PRN (22:24)
[2018-10-23] MEDS ORDERED: METHADONE HCL 10 MG TABLET ONE (03:32)
[2018-10-23] MEDS ORDERED: METHADONE HCL 40 MG DISPERSABLE TABLET ONE (03:33)
[2018-10-23] MEDS: IBUPROFEN 400 MG TABLET (FP) PO PRN ×2 (04:30→18:24)
[2018-10-23] MEDS: METHADONE 80 MG, METHADONE 20 MG PO SCH (06:50)
[2018-10-23] MEDS: hydrOXYzine PAMOATE 50 MG CAPSULE (FP) PO PRN ×2 (06:51→18:24)
[2018-10-23] MEDS: NICOTINE 21 MG/24 HOURS TOPICAL PATCH TD SCH (10:36)
[2018-10-23] MEDS: PRENATAL VITAMINS W/ FOLIC ACID TABLET (FP) PO SCH (10:37)
[2018-10-23] MEDS: RANITIDINE HCL 150 MG TABLET (FP) PO SCH ×2 (10:37→22:04)
[2018-10-23] MEDS: TOLNAFTATE 1% CREAM 15 GM TUBE TP SCH ×2 (10:41→22:04)
[2018-10-23] MEDS: NAPHAZOLINE/PHENIRAMINE OPHTHALMIC 15 ML BOTTLE OU PRN (10:41)
[2018-10-23] MEDS: QUEtiapine FUMARATE 50 MG TABLET PO SCH (22:04)
[2018-10-23] MEDS: THIAMINE HCL 100 MG TABLET (FP) PO SCH (22:04)
[2018-10-24] MEDS ORDERED: METHADONE HCL 40 MG DISPERSABLE TABLET ONE (02:55)
[2018-10-24] MEDS ORDERED: METHADONE HCL 10 MG TABLET ONE (02:55)
[2018-10-24] MEDS: METHADONE 80 MG, METHADONE 20 MG PO SCH (06:57)
[2018-10-24] MEDS: IBUPROFEN 400 MG TABLET (FP) PO PRN (07:00)
[2018-10-24] MEDS: NAPHAZOLINE/PHENIRAMINE OPHTHALMIC 15 ML BOTTLE OU PRN (07:00)
[2018-10-24] MEDS: hydrOXYzine PAMOATE 50 MG CAPSULE (FP) PO PRN ×2 (07:00→14:20)
[2018-10-24] MEDS: PRENATAL VITAMINS W/ FOLIC ACID TABLET (FP) PO SCH (10:38)
[2018-10-24] MEDS: NICOTINE 21 MG/24 HOURS TOPICAL PATCH TD SCH (10:38)
[2018-10-24] MEDS: RANITIDINE HCL 150 MG TABLET (FP) PO SCH ×2 (10:38→22:14)
[2018-10-24] MEDS: TOLNAFTATE 1% CREAM 15 GM TUBE TP SCH ×2 (10:40→22:14)
[2018-10-24 11:28] LABS: RPR REACTIVE 1:4 (NONREACTIVE)
[2018-10-24 11:30] LABS: TREPONEMA ANTIBODY PREVIOUSLY REACTIVE (NONREACTIVE)
--- NOTE | 2018-10-24 11:49 | PN ---
[facility] Progress Note Note: PATIENT SEEN FOR C/O BACK PAIN AND ELEVATED RPR 1:4. UPON REVIEW OF LABS PATIENT RPR WAS 1:4 02/06/18. PATIENT STATES HE WAS TREATED WITH ANTIBIOTICS INJECTION AND PILLS BACK IN JANUARY OF THIS YEAR. PATIENT ALSO C/O DRY SKIN. Vital Signs Temperature 97.4 F L 10/24/18 07:07 Pulse Rate 75 10/24/18 07:07 Respiratory Rate 16 10/24/18 07:07 Blood Pressure 120/81 10/24/18 07:07 O2 Sat by Pulse Oximetry (%) Laboratory Tests 10/18/18 10/18/18 10/22/18 08:00 23:18 07:50 WBC RBC Hgb Hct MCV MCH MCHC RDW Plt Count MPV Absolute Neuts (auto) Neutrophils % Lymphocytes % Monocytes % Eosinophils % Basophils % Nucleated RBC % Sodium 134 L Potassium 4.4 Chloride 97 L Carbon Dioxide 29 Anion Gap 8 BUN 13 Creatinine 0.8 Creat Clearance w eGFR > 60 Random Glucose 106 Calcium 8.5 Total Bilirubin 0.8 AST 191 H ALT 123 H Alkaline Phosphatase 167 H Total Protein 9.2 H Albumin 3.0 L Urine Color Cancelled Urine Appearance Cancelled Urine pH Cancelled Ur Specific [place] Cancelled Urine Protein Cancelled Urine Glucose (UA) Cancelled Urine Ketones Cancelled Urine Blood Cancelled Urine Nitrite Cancelled Urine Bilirubin Cancelled Urine Urobilinogen Cancelled Ur Leukocyte Esterase Cancelled RPR Titer Reactive 1:4 H T.pallidum Ab (MHA) Previously reactive 10/22/18 07:50 WBC 4.1 RBC 4.54 Hgb 12.8 Hct 40.6 MCV 89.5 MCH 28.2 MCHC 31.5 L RDW 13.3 D Plt Count 73 L D MPV 9.9 Absolute Neuts (auto) 2.5 Neutrophils % 61.5 Lymphocytes % 23.7 Monocytes % 14.0 H Eosinophils % 0.3 Basophils % 0.5 Nucleated RBC % 0 Sodium Potassium Chloride Carbon Dioxide Anion Gap BUN Creatinine Creat Clearance w eGFR Random Glucose Calcium Total Bilirubin AST ALT Alkaline Phosphatase Total Protein Albumin Urine Color Urine Appearance Urine pH Ur Specific [place] Urine Protein Urine Glucose (UA) Urine Ketones Urine Blood Urine Nitrite Urine Bilirubin Urine Urobilinogen Ur Leukocyte Esterase RPR Titer T.pallidum Ab (MHA) PE: SKIN WARM, +DRYNESS TO FINGERS AND HANDS ALERT AND ORIENTED X 3 EXT FULL ROM, NO EDEMA, AMB AD TABATHA MS: + LUMBAR SACRAL DISCOMFORT, LEVEL 7/10, NON-RADIATING A/P: LBP DRY SKIN WILL ORDER FLEXERIL/LIDOCAINE PATCH FOR LBP AVEENO SOAP FOR DRY SKIN CONTINUE TO MONITOR CLINICALLY
[2018-10-24] MEDS: LIDOCAINE 5% TOPICAL PATCH TP SCH (14:19)
[2018-10-24] MEDS: CYCLOBENZAPRINE HCL 10 MG TABLET (FP) PO SCH ×2 (14:20→22:11)
[2018-10-24] MEDS: COLLOIDAL OATMEAL 1 BAR EACH TP PRN (14:21)
[2018-10-24 14:42] LABS: URINE APPEARANCE CLEAR; URINE BILIRUBIN NEGATIVE (<2.0 mg/dL); URINE COLOR YELLOW; URINE GLUCOSE (UA) NEGATIVE (NEGATIVE); URINE KETONE NEGATIVE (NEGATIVE); URINE LEUK ESTERASE NEGATIVE (NEGATIVE); URINE NITRITE NEGATIVE (NEGATIVE); URINE PROTEIN NEGATIVE (NEGATIVE)
[2018-10-24 14:48] LABS: URINE HYALINE CAST 1 /lpf; URINE MUCUS RARE
[2018-10-24] MEDS: THIAMINE HCL 100 MG TABLET (FP) PO SCH (22:11)
[2018-10-24] MEDS: QUEtiapine FUMARATE 50 MG TABLET PO SCH (22:14)
[2018-10-24] MEDS: LIDOCAINE PATCH REMOVAL MC SCH (22:15)
[2018-10-25] MEDS ORDERED: METHADONE HCL 40 MG DISPERSABLE TABLET ONE (04:16)
[2018-10-25] MEDS ORDERED: METHADONE HCL 10 MG TABLET ONE (04:16)
[2018-10-25] MEDS: CYCLOBENZAPRINE HCL 10 MG TABLET (FP) PO SCH ×3 (06:51→22:12)
[2018-10-25] MEDS: hydrOXYzine PAMOATE 50 MG CAPSULE (FP) PO PRN ×4 (06:51→22:12)
[2018-10-25] MEDS: METHADONE 80 MG, METHADONE 20 MG PO SCH (06:51)
[2018-10-25] MEDS: TOLNAFTATE 1% CREAM 15 GM TUBE TP SCH ×2 (11:03→22:32)
[2018-10-25] MEDS: NICOTINE 21 MG/24 HOURS TOPICAL PATCH TD SCH (11:03)
[2018-10-25] MEDS: RANITIDINE HCL 150 MG TABLET (FP) PO SCH ×2 (11:03→22:13)
[2018-10-25] MEDS: PRENATAL VITAMINS W/ FOLIC ACID TABLET (FP) PO SCH (11:03)
[2018-10-25] MEDS: LIDOCAINE 5% TOPICAL PATCH TP SCH (11:04)
[2018-10-25] MEDS: NAPHAZOLINE/PHENIRAMINE OPHTHALMIC 15 ML BOTTLE OU PRN (11:05)
[2018-10-25] MEDS: THIAMINE HCL 100 MG TABLET (FP) PO SCH (22:12)
[2018-10-25] MEDS: QUEtiapine FUMARATE 50 MG TABLET PO SCH (22:13)
[2018-10-25] MEDS: LIDOCAINE PATCH REMOVAL MC SCH (22:32)
[2018-10-26] MEDS: METHADONE 80 MG, METHADONE 20 MG PO SCH (06:58)
[2018-10-26] MEDS ORDERED: METHADONE HCL 10 MG TABLET ONE (06:58)
[2018-10-26] MEDS ORDERED: METHADONE HCL 40 MG DISPERSABLE TABLET ONE (06:58)
[2018-10-26] MEDS: CYCLOBENZAPRINE HCL 10 MG TABLET (FP) PO SCH ×3 (06:59→21:56)
[2018-10-26] MEDS: RANITIDINE HCL 150 MG TABLET (FP) PO SCH ×2 (11:06→21:56)
[2018-10-26] MEDS: PRENATAL VITAMINS W/ FOLIC ACID TABLET (FP) PO SCH (11:06)
[2018-10-26] MEDS: NICOTINE 21 MG/24 HOURS TOPICAL PATCH TD SCH (11:06)
[2018-10-26] MEDS: LIDOCAINE 5% TOPICAL PATCH TP SCH (11:06)
[2018-10-26] MEDS: hydrOXYzine PAMOATE 50 MG CAPSULE (FP) PO PRN ×2 (11:07→21:56)
[2018-10-26] MEDS: TOLNAFTATE 1% CREAM 15 GM TUBE TP SCH ×2 (11:08→21:56)
[2018-10-26] MEDS: NAPHAZOLINE/PHENIRAMINE OPHTHALMIC 15 ML BOTTLE OU PRN (21:55)
[2018-10-26] MEDS: THIAMINE HCL 100 MG TABLET (FP) PO SCH (21:56)
[2018-10-26] MEDS: LIDOCAINE PATCH REMOVAL MC SCH (21:56)
[2018-10-26] MEDS: QUEtiapine FUMARATE 50 MG TABLET PO SCH (21:56)
[2018-10-27] MEDS ORDERED: METHADONE HCL 40 MG DISPERSABLE TABLET ONE (03:33)
[2018-10-27] MEDS ORDERED: METHADONE HCL 10 MG TABLET ONE (03:33)
[2018-10-27] MEDS: CYCLOBENZAPRINE HCL 10 MG TABLET (FP) PO SCH ×3 (06:25→22:21)
[2018-10-27] MEDS: METHADONE 80 MG, METHADONE 20 MG PO SCH (06:25)
[2018-10-27] MEDS: hydrOXYzine PAMOATE 50 MG CAPSULE (FP) PO PRN ×3 (06:27→22:23)
[2018-10-27] MEDS: PRENATAL VITAMINS W/ FOLIC ACID TABLET (FP) PO SCH (10:53)
[2018-10-27] MEDS: TOLNAFTATE 1% CREAM 15 GM TUBE TP SCH ×2 (10:53→22:25)
[2018-10-27] MEDS: NICOTINE 21 MG/24 HOURS TOPICAL PATCH TD SCH (10:53)
[2018-10-27] MEDS: LIDOCAINE 5% TOPICAL PATCH TP SCH (10:53)
[2018-10-27] MEDS: RANITIDINE HCL 150 MG TABLET (FP) PO SCH ×2 (10:53→22:22)
[2018-10-27] MEDS ORDERED: QUEtiapine FUMARATE 25 MG TABLET (FP) ONE (19:41)
[2018-10-27] MEDS: THIAMINE HCL 100 MG TABLET (FP) PO SCH (22:21)
[2018-10-27] MEDS: QUEtiapine FUMARATE 50 MG TABLET PO SCH (22:22)
[2018-10-27] MEDS: LIDOCAINE PATCH REMOVAL MC SCH (22:25)
[2018-10-28] MEDS ORDERED: METHADONE HCL 10 MG TABLET ONE (04:10)
[2018-10-28] MEDS ORDERED: METHADONE HCL 40 MG DISPERSABLE TABLET ONE (04:10)
[2018-10-28] MEDS: CYCLOBENZAPRINE HCL 10 MG TABLET (FP) PO SCH ×3 (06:22→21:59)
[2018-10-28] MEDS: hydrOXYzine PAMOATE 50 MG CAPSULE (FP) PO PRN ×2 (06:22→22:00)
[2018-10-28] MEDS: METHADONE 80 MG, METHADONE 20 MG PO SCH (06:22)
[2018-10-28] MEDS: LIDOCAINE 5% TOPICAL PATCH TP SCH (11:22)
[2018-10-28] MEDS: NICOTINE 21 MG/24 HOURS TOPICAL PATCH TD SCH (11:22)
[2018-10-28] MEDS: PRENATAL VITAMINS W/ FOLIC ACID TABLET (FP) PO SCH (11:22)
[2018-10-28] MEDS: RANITIDINE HCL 150 MG TABLET (FP) PO SCH ×2 (11:23→22:05)
[2018-10-28] MEDS: TOLNAFTATE 1% CREAM 15 GM TUBE TP SCH ×2 (11:23→22:05)
[2018-10-28] MEDS: QUEtiapine FUMARATE 50 MG TABLET PO SCH (21:59)
[2018-10-28] MEDS: THIAMINE HCL 100 MG TABLET (FP) PO SCH (21:59)
[2018-10-28] MEDS: LIDOCAINE PATCH REMOVAL MC SCH (22:12)
[2018-10-29] MEDS ORDERED: METHADONE HCL 40 MG DISPERSABLE TABLET ONE (03:13)
[2018-10-29] MEDS ORDERED: METHADONE HCL 10 MG TABLET ONE (03:13)
[2018-10-29] MEDS: hydrOXYzine PAMOATE 50 MG CAPSULE (FP) PO PRN ×2 (06:21→22:06)
[2018-10-29] MEDS: CYCLOBENZAPRINE HCL 10 MG TABLET (FP) PO SCH ×3 (06:21→22:05)
[2018-10-29] MEDS: METHADONE 80 MG, METHADONE 20 MG PO SCH (06:22)
[2018-10-29] MEDS: RANITIDINE HCL 150 MG TABLET (FP) PO SCH ×2 (10:53→22:05)
[2018-10-29] MEDS: PRENATAL VITAMINS W/ FOLIC ACID TABLET (FP) PO SCH (10:53)
[2018-10-29] MEDS: TOLNAFTATE 1% CREAM 15 GM TUBE TP SCH ×2 (10:54→22:06)
[2018-10-29] MEDS: NICOTINE 21 MG/24 HOURS TOPICAL PATCH TD SCH (10:54)
[2018-10-29] MEDS: LIDOCAINE 5% TOPICAL PATCH TP SCH (10:54)
[2018-10-29] MEDS: THIAMINE HCL 100 MG TABLET (FP) PO SCH (22:04)
[2018-10-29] MEDS: QUEtiapine FUMARATE 50 MG TABLET PO SCH (22:05)
[2018-10-29] MEDS: LIDOCAINE PATCH REMOVAL MC SCH (22:05)
[2018-10-30] MEDS ORDERED: METHADONE HCL 40 MG DISPERSABLE TABLET ONE (02:56)
[2018-10-30] MEDS ORDERED: METHADONE HCL 10 MG TABLET ONE (02:56)
[2018-10-30] MEDS: METHADONE 80 MG, METHADONE 20 MG PO SCH (06:39)
[2018-10-30] MEDS: CYCLOBENZAPRINE HCL 10 MG TABLET (FP) PO SCH ×3 (06:41→22:12)
[2018-10-30] MEDS: hydrOXYzine PAMOATE 50 MG CAPSULE (FP) PO PRN ×2 (06:43→10:30)
[2018-10-30] MEDS: COLLOIDAL OATMEAL 1 BAR EACH TP PRN (08:50)
[2018-10-30] MEDS: PRENATAL VITAMINS W/ FOLIC ACID TABLET (FP) PO SCH (10:29)
[2018-10-30] MEDS: TOLNAFTATE 1% CREAM 15 GM TUBE TP SCH ×2 (10:29→22:13)
[2018-10-30] MEDS: NICOTINE 21 MG/24 HOURS TOPICAL PATCH TD SCH (10:29)
[2018-10-30] MEDS: LIDOCAINE 5% TOPICAL PATCH TP SCH (10:29)
[2018-10-30] MEDS: RANITIDINE HCL 150 MG TABLET (FP) PO SCH ×2 (10:29→22:13)
--- NOTE | 2018-10-30 12:29 | PN ---
Psychiatric Progress Note Vital Signs: Vital Signs Period Temp Pulse Resp BP Sys/Freire Pulse Ox Last 24 Hr 98.3 F 89 18-18 120/84 Date of Session: 10/30/18 Chief Complaint:: Discharge Note HPI: Patient addressing Alcohol dependence comorbid with Opioid Dependence on Agonist Therapy, Nicotine Dependence, substance-Induced Sleep Disorder ROS: Hep C, HIV were medically managed Current Medications: Active Medications Generic Name Dose Route Start Last Admin Trade Name Freq PRN Reason Stop Dose Admin Acetaminophen 650 mg 10/18/18 15:51 Tylenol - PO Q4H PRN FEVER Al Hydroxide/Mg Hydroxide 30 ml 10/18/18 15:51 10/23/18 18:24 Mylanta Oral Suspension - PO 30 ml Q6H PRN Administration DYSPEPSIA Colloidal Oatmeal 1 applic 10/24/18 11:43 10/30/18 08:50 Aveeno Soap - TP 1 applic DAILY PRN Administration HYGEINE Cyclobenzaprine HCl 10 mg 10/24/18 14:00 10/30/18 06:41 Flexeril - PO 10 mg TID DEMIAN Administration Eucalyptus/Menthol/Phenol/Sorbitol 1 each 10/18/18 15:51 Cepastat Lozenge - MM Q4H PRN SORE THROAT Guaifenesin 10 ml 10/18/18 15:51 Robitussin Dm - PO Q6H PRN COUGH Hydroxyzine Pamoate 50 mg 10/18/18 15:51 10/30/18 10:30 Vistaril - PO 50 mg Q4H PRN Administration AGITATION Ibuprofen 400 mg 10/18/18 15:51 10/24/18 07:00 Motrin - PO 400 mg Q6H PRN Administration Pain level 4-6 Lidocaine 1 patch 10/24/18 12:30 10/30/18 10:29 Lidoderm Patch - TP 1 patch DAILY DEMIAN Administration Loperamide HCl 4 mg 10/18/18 15:51 Imodium - PO Q6H PRN DIARRHEA Magnesium Citrate 300 ml 10/18/18 15:51 Citroma - PO Q48H PRN CONSTIPATION Magnesium Hydroxide 30 ml 10/18/18 15:51 10/24/18 22:13 Milk Of Magnesia - PO 30 ml DAILY PRN Administration CONSTIPATION Melatonin 5 mg 10/18/18 22:00 10/24/18 22:12 Melatonin PO 5 mg HS PRN Administration INSOMNIA Methadone HCl 80 mg/ Methadone 100 mg 10/26/18 06:00 10/30/18 06:39 HCl 20 mg PO 11/01/18 05:59 100 mg DAILY@0600 DEMIAN Administration Miscellaneous 1 each 10/24/18 22:00 10/29/18 22:05 Lidoderm Patch Removal MC 1 each DAILY@2200 DEMIAN Administration Naphazoline HCl/Pheniramine Maleate 2 drop 10/18/18 15:53 10/26/18 21:55 Visine-A - OU 2 drop QID PRN Administration DRY EYES Nicotine 21 mg 10/19/18 10:00 10/30/18 10:29 Nicoderm Patch - TD Not Given DAILY DEMIAN Nicotine Polacrilex 4 mg 10/18/18 15:51 Nicorette Gum - BC Q2H PRN NICOTINE REPLACEMENT RX Multivit/Folic Acid/Iron 1 tab 10/19/18 10:00 10/30/18 10:29 Vitamins (Sjr) - PO 1 tab DAILY DEMIAN Administration Pseudoephedrine/Triprolidine 1 combo 10/18/18 15:51 Actifed - PO TID PRN NASAL CONGESTION Quetiapine Fumarate 50 mg 10/18/18 22:00 10/29/18 22:05 Seroquel - PO 50 mg HS DEMIAN Administration Ranitidine HCl 150 mg 10/18/18 22:00 10/30/18 10:29 Zantac - PO 150 mg BID DEMIAN Administration Thiamine HCl 100 mg 10/18/18 22:00 10/29/18 22:04 Vitamin B1 - PO 100 mg HS DEMIAN Administration Tolnaftate 1 applic 10/18/18 22:00 10/30/18 10:29 Tinactin 1% Cream - TP Not Given BID DEMIAN Current Side Effect: No Lab tests ordered: Yes Lab tests reviewed: Yes Provider note:: Patient will complete this program on 10/31/18. He has met his treatment goals and will continue to address his issues in outpatient treatment at [facility] at [address] [place] [id number]. Told chief writer that from his participation in this program, he has learned to make meetings and get a sponsor. He responded well to Seroquel 50 mg po HS. Script for 30 days supply of that medication will be electronically transmitted to [facility] at [address] [place] [address]. He is stable for discharged on Total face to face time:: 35 Mental Status Exam - Mental Status Exam Alert and Oriented to: Time, Place, Person Cognitive Function: Fair Patient Appearance: Well Groomed Mood: Hopeful, Euthymic Affect: Appropriate Patient Behavior: Cooperative Speech Pattern: Clear Voice Loudness: Normal Thought Process: Intact, Goal Oriented Thought Disorder: Not Present Hallucinations: Denies Suicidal Ideation: Denies Homicidal Ideation: Denies Insight/Judgement: Fair Sleep: Fair Appetite: Good Muscle strength/Tone: Normal Gait/Station: Normal Psychiatric Treatment Plan - Problem List (1) Alcohol dependence Current Visit: Yes Comment: . (2) Opioid dependence on agonist therapy Current Visit: Yes (3) Nicotine dependence Current Visit: Yes Qualifiers: Nicotine product type: cigarettes Substance use status: uncomplicated Qualified Code(s): F17.210 - Nicotine dependence, cigarettes, uncomplicated Comment: . (4) Substance-induced sleep disorder Current Visit: Yes (5) Hepatitis C Current Visit: Yes Qualifiers: Viral hepatitis chronicity: chronic Hepatic coma status: without hepatic coma Qualified Code(s): B18.2 - Chronic viral hepatitis C (6) Exotropia of right eye Current Visit: Yes (7) History of HIV infection Current Visit: Yes Initial treatment plan: Patient will be discharged tomorrow [facility]
[2018-10-30] MEDS: QUEtiapine FUMARATE 50 MG TABLET PO SCH (22:12)
[2018-10-30] MEDS: LIDOCAINE PATCH REMOVAL MC SCH (22:12)
[2018-10-30] MEDS: THIAMINE HCL 100 MG TABLET (FP) PO SCH (22:13)
[2018-10-31] MEDS ORDERED: METHADONE HCL 10 MG TABLET ONE (03:13)
[2018-10-31] MEDS ORDERED: METHADONE HCL 40 MG DISPERSABLE TABLET ONE (03:14)
[2018-10-31] MEDS: METHADONE 80 MG, METHADONE 20 MG PO SCH (06:29)
[2018-10-31] MEDS: CYCLOBENZAPRINE HCL 10 MG TABLET (FP) PO SCH (06:31)
[2018-10-31] MEDS: hydrOXYzine PAMOATE 50 MG CAPSULE (FP) PO PRN (06:31)
[2018-10-31 07:06] VITALS: BP 101/69; PULSE 84; TEMP 98.5
[2018-10-31] MEDS: TOLNAFTATE 1% CREAM 15 GM TUBE TP SCH (10:00)
[2018-10-31] MEDS: RANITIDINE HCL 150 MG TABLET (FP) PO SCH (10:00)
[2018-10-31] MEDS: NICOTINE 21 MG/24 HOURS TOPICAL PATCH TD SCH (10:00)
[2018-10-31] MEDS: PRENATAL VITAMINS W/ FOLIC ACID TABLET (FP) PO SCH (10:00)
[2018-10-31] MEDS: LIDOCAINE 5% TOPICAL PATCH TP SCH (10:00)
--- NOTE | 2018-10-31 12:22 | PN ---
[facility] Progress Note Note: PT COMPLETED REHAB TODAY. ALERT O X 3. PT WILL FOLLOW UP WITH TREATMENT PROGRAM AT [facility]/PRIMARY CARE WITH DR. MARINA KRISHNAMURTHY. Vital Signs 10/31/18 07:06 Temperature 98.5 F Pulse Rate 84 Respiratory 18 Rate Blood Pressure 101/69 NAD PLAN:D/C PT TODAY. FOLLOW UP WITH PCP DR. MARINA KRISHNAMURTHY AT [facility] AFTER DISCHARGE.
== END 2018-10-31 10:25 | disposition home or self-care (01) | DRG 772 ==
LOC: YASAS 12:33 → Y5N 16:06
PROVIDERS: ADMIT Psychiatry & Neurology Psychiatry; ATTEND Psychiatry & Neurology Psychiatry
PROC: HZ42ZZZ Group Counseling for Substance Abuse Treatment, Cognitive-Behavioral (ICD-10-PCS; principal; 2018-10-18)
DX: F11.20 Opioid dependence, uncomplicated (principal); F14.20 Cocaine dependence, uncomplicated; F17.210 Nicotine dependence, cigarettes, uncomplicated; F19.282 Other psychoactive substance dependence with psychoactive substance-induced sleep disorder; F41.9 Anxiety disorder, unspecified; B18.2 Chronic viral hepatitis C; H50.10 Unspecified exotropia; Z21 Asymptomatic human immunodeficiency virus [HIV] infection status; M54.42 Lumbago with sciatica, left side; M54.41 Lumbago with sciatica, right side; L98.8 Other specified disorders of the skin and subcutaneous tissue
CPT/HCPCS: 36415; 80053; 81003; 81015; 85025; 86593; 86780; 93005; 93010